=== PATIENT | female | born 1975 | race Caucasian/White ===

== ENCOUNTER 2019-02-18 10:21 | Emergency (ER) | payer OTHER ==
[~2019-02-18] VITALS: Ht 167.6 cm; Wt 68.0 kg
[~2019-02-18 10:21] MED LIST: CYCLOBENZAPRINE10 MG ORAL; DIPHENHYDRAMINE25 M1 ORAL; IBUPROFEN600 MG ORAL; NITROFURANTOIN100 M2 ORAL; PREDNISONE20 MG ORAL
--- NOTE | 2019-02-18 10:33 | NUR ---
ED Nurse Note: pt walked in to ED due to pain on right foot. pt twisted the ankle yesterday at concert. painful to weight on it. ICE applied. swelling noted. AAO x4. respirations even and non-labored noted. will wait for the further order.
--- NOTE | 2019-02-18 10:46 | Emergency Room Report ---
History of Present Illness General Chief Complaint: Lower Extremity Injury Source: Patient Present Illness HPI Patient presents with complaints of pain to the right foot and ankle Reports that yesterday she was at [place] at a concert when she stepped in a crack and essentially rolled her right foot pain is localizing to the lateral aspect of the right foot Dorsally pain is worse with bearing weight Denies any other knee pain denies any chest pain or shortness of breath denies any other trauma Allergies: Coded Allergies: NITROFURANTOIN (Verified Allergy, Unknown, 02/18/19) Patient History Past Medical History: see triage record Pertinent Family History: none Reviewed Nursing Documentation: PMH: Agreed; PSxH: Agreed Review of Systems All Other Systems: negative except mentioned in HPI Physical Exam Vital Signs Date Time Temp Pulse Resp B/P (MAP) Pulse Ox O2 Delivery O2 Flow Rate FiO2 02/18/19 10:24 97.5 68 20 156/99 (118) 100 Room Air Sp02 EP Interpretation: reviewed, normal General Appearance: well appearing, no apparent distress Head: normocephalic, atraumatic Eyes: bilateral eye PERRL, bilateral eye EOMI ENT: hearing grossly normal, normal pharynx Neck: supple Respiratory: lungs clear Cardiovascular #1: regular rate, rhythm Musculoskeletal: swelling - Right lateral ankle tender on palpation lateral foot dorsally, neurovascular intact Neurologic: alert, oriented x3, responsive Skin: other - As above Procedures Splinting Splinting : Consent: Verbal Location: Right ankle Pre-Made Type: aircast Splint: sugar-tong Pre-Proc Neuro Vasc Exam: normal Post-Proc Neuro Vasc Exam: normal Patient Tolerated: Well Complications: None Medical Decision Making Diagnostic Impression: Primary Impression: Ankle sprain ER Course Given the history exam and presentation X-ray imaging is obtained of the foot and ankle there is some soft tissue swelling seen however no obvious fracture Given the patient discomfort Splint is applied patient provided with crutches nonweightbearing and close outpatient follow-up Other X-Ray Diagnostic Results Other X-Ray Diagnostic Results #1: X-Ray ordered: Right ankle # of Views/Limited Vs Complete: 3 View Indication: Pain EP Interpretation: Yes Interpretation: no dislocation, no fractures, other - Mild swelling Impression: Other - Mild soft tissue swelling Electronically Signed by: Charlene Covington, DO Other X-Ray Diagnostic Results #2: X-Ray ordered: Right foot # of Views/Limited Vs Complete: 3 View Indication: Pain EP Interpretation: Yes Interpretation: no dislocation, no soft tissue swelling, no fractures Impression: No acute disease Electronically Signed by: Charlene Covington DO Last Vital Signs Date Time Temp Pulse Resp B/P (MAP) Pulse Ox O2 Delivery O2 Flow Rate FiO2 02/18/19 10:24 97.5 68 20 156/99 (118) 100 Room Air Status: improved Disposition: HOME, SELF-CARE Condition: Improved Scripts Ibuprofen* (MOTRIN*) 600 Mg Tablet 600 MG ORAL Q8H PRN for For Pain, #20 TAB 0 Refills Prov: Charlene Covington DO 02/18/19 Additional Instructions: Patient is provided with the discharge instructions notified to follow up with primary doctor in the next 2-3 days otherwise return to the er with any worsening symptoms. Please note that this report is being documented using [employer] technology. This can lead to erroneous entry secondary to incorrect interpretation by the dictating instrument. Charlene Covington DO Feb 18, 2019 10:45
[2019-02-18] MEDS ORDERED: IBUPROFEN600 MG ORAL (11:23)
[2019-02-18 11:40] VITALS: BP 146/87
--- NOTE | 2019-02-18 11:40 | NUR ---
ER DISCHARGE NOTE: Patient is cleared to be discharged per ERMD, pt is aox4, on room air, with stable vital signs. pt was given dc and prescription instructions, pt was able to verbalize understanding, pt id band removed. pt is able to ambulate with steady gait. pt took all belongings.
--- NOTE | 2019-02-18 12:08 | Diagnostic Imaging Report ---
Indication: Foot Pain Comparison: None Findings: 3 views of the right foot were obtained. No acute fractures, malalignment, erosions or periostitis are identified. Soft tissues are unremarkable. Impression: No acute findings.
--- NOTE | 2019-02-18 12:09 | Diagnostic Imaging Report ---
Indication: Pain right ankle ankle pain/trauma Comparison: None Findings: 3 views of the right ankle obtained. No acute fracture, malalignment, periostitis, or osteochondral defects are identified. Soft tissues are unremarkable. Impression: Negative examination
== END 2019-02-18 11:40 | disposition home or self-care (01) ==
LOC: EMR 10:45
DX: S93.401A Sprain of unspecified ligament of right ankle, initial encounter (principal); X50.1XXA Overexertion from prolonged static or awkward postures, initial encounter; Y92.9 Unspecified place or not applicable; Z88.8 Allergy status to other drugs, medicaments and biological substances
CPT/HCPCS: 99283